=== PATIENT | male | born 1975 | race Caucasian/White ===

== ENCOUNTER 2022-07-20 15:00 | Emergency (ER) | payer MEDICAID ==
[~2022-07-20] VITALS: Ht 162.6 cm; Wt 81.6 kg
[~2022-07-20 15:00] MED LIST: ACYC400T19 PO; GABA800T11 PO
--- NOTE | 2022-07-20 15:30 | NUR ---
[facility] FOR ALCOHOL INTOXICATION. PT VITALS ARE WITHIN NORMAL LIMITS,NO RESP DISTRESS NOTED.
--- NOTE | 2022-07-20 17:50 | NUR ---
PT WANTED TO LEAVE, PT ABLE TO AMBULATE WITH STEAD GAIT, DR DOZIER AWARE.
[2022-07-20 17:51] VITALS: BP 122/72
== END 2022-07-20 17:52 | disposition home or self-care (01) ==
LOC: ER 15:04
DX: S00.83XA Contusion of other part of head, initial encounter (principal); F10.229 Alcohol dependence with intoxication, unspecified; F17.200 Nicotine dependence, unspecified, uncomplicated; Z88.8 Allergy status to other drugs, medicaments and biological substances; Z79.899 Other long term (current) drug therapy; W18.30XA Fall on same level, unspecified, initial encounter; Y93.89 Activity, other specified; Y92.89 Other specified places as the place of occurrence of the external cause; Y99.8 Other external cause status; Y90.9 Presence of alcohol in blood, level not specified
CPT/HCPCS: 70450-TC

== ENCOUNTER 2022-07-20 23:38 | Emergency (ER) | payer MEDICAID ==
[~2022-07-20] VITALS: Ht 162.6 cm; Wt 81.6 kg
[2022-07-20 23:50] VITALS: BP 135/88
== END 2022-07-21 05:25 | disposition home or self-care (01) ==
LOC: ER 23:39
DX: F10.129 Alcohol abuse with intoxication, unspecified (principal); F17.200 Nicotine dependence, unspecified, uncomplicated; Z88.8 Allergy status to other drugs, medicaments and biological substances; Z79.899 Other long term (current) drug therapy; Y90.9 Presence of alcohol in blood, level not specified

== ENCOUNTER 2025-07-01 01:36 | Inpatient (IN) | payer MEDICAID, OTHER ==
[~2025-07-01] VITALS: Ht 157.5 cm; Wt 79.4 kg
[2025-07-01] MEDS: IV NS 0.9% 1,000 ML BAG IV ONE (02:16)
[2025-07-01 02:21] LABS: PLATELET COUNT (AUTO) 131 K/uL (150-450); RED BLOOD CELL COUNT(AUTO) 5.07 MIL/uL (4.5-6.0); RED CELL DISTRIBUTION WIDTH 14.7 % (11.5-15.0); WHITE BLOOD COUNT (AUTO) 6.3 K/uL (4.3-11.0)
[2025-07-01] MEDS: ONDANSETRON HCL/PF 4 MG/2 ML VIAL IVP ONE (02:23)
[2025-07-01 02:32] LABS: CALCIUM, SERUM 9.1 mg/dL (8.5-10.1); CREATININE 1.2 mg/dL (0.6-1.3); INR 1.0 (0.91-1.10); SODIUM SERUM 142 mmol/L (136-145); UREA NITROGEN, BLOOD 15 mg/dL (7-18)
[2025-07-01 02:47] LABS: ASPARTATE AMINOTRANSFERASE 25 U/L (15-37); TOTAL PROTEIN, SERUM 7.7 g/dL (6.4-8.2)
[2025-07-01] MEDS ORDERED: MAG HYDROX/AL HYDROX/SIMETH 30 ML UDC PO PRN (03:30)
[2025-07-01] MEDS ORDERED: Z GUARD REMEDY 4 OZ OINT TP PRN (03:30)
[2025-07-01] MEDS ORDERED: ACETAMINOPHEN 325 MG TABLET PO PRN (03:30)
[2025-07-01] MEDS ORDERED: MAGNESIUM HYDROXIDE 30 ML UDC PO PRN (03:30)
[2025-07-01] MEDS: ONDANSETRON HCL/PF 4 MG/2 ML VIAL IVP PRN (03:31)
[2025-07-01 03:33] LABS: APPEARANCE,URINE CLEAR (CLEAR); BLOOD, URINE NEGATIVE Ery/uL (NEGATIVE); LEUKOCYTE ESTERASE ,URINE NEGATIVE (NEGATIVE); NITRITE, URINE NEGATIVE (NEGATIVE); UGLUCOSE NEGATIVE (NEGATIVE)
[2025-07-01 03:48] LABS: ADD URINE CULTURE NO; SQUAMOUS EPITHELIAL CELL,UR 0-2 /HPF (None Seen)
[2025-07-01] MEDS ORDERED: HYDROCODONE/APAP 10/325MG TABLET ONE (06:25)
[2025-07-01] MEDS: HYDROCODONE/APAP 10/325MG TABLET PO PRN (06:31)
[2025-07-01 08:00] VITALS: BP 112/84; TEMP 97.7; O2SAT 98
[2025-07-01] MEDS: PANTOPRAZOLE 40 MG VIAL IV SCH (08:53)
[2025-07-01] MEDS: IV NS 0.9% 1,000 ML IV PRN (12:09)
[2025-07-01] MEDS: HYDROMORPHONE 1 MG/1 ML DISP.SYRIN IV PRN (12:26)
[2025-07-01] MEDS ORDERED: DOSING PER PHARMACY-ZOSYN IV 1 EA EA XX PRN (13:30)
[2025-07-01] MEDS: ZOSYN IVPB 3.375 G in IV D5W 50ml IV SCH (14:36)
[2025-07-01 16:00] VITALS: BP 119/86; TEMP 97.7; O2SAT 99
[2025-07-01] MEDS: GABAPENTIN 400 MG CAPSULE PO SCH (16:39)
[2025-07-01] MEDS ORDERED: ACYCLOVIR PO SCH (17:00)
[2025-07-01 19:30] VITALS: BP 113/83; TEMP 97.5; O2SAT 95
== END 2025-07-01 20:00 | disposition left against medical advice (07) | DRG 254 ==
LOC: ER 01:41 → MED 06:26 → MEDSG1 07:51
PROVIDERS: ADMIT Student in an Organized Health Care Education/Training Program; ATTEND Student in an Organized Health Care Education/Training Program
DX: K37 Unspecified appendicitis (principal); K85.90 Acute pancreatitis without necrosis or infection, unspecified; D69.59 Other secondary thrombocytopenia; Z59.00 Homelessness unspecified; B19.20 Unspecified viral hepatitis C without hepatic coma; S00.11XA Contusion of right eyelid and periocular area, initial encounter; G62.9 Polyneuropathy, unspecified; Z79.899 Other long term (current) drug therapy; Z88.6 Allergy status to analgesic agent; M79.672 Pain in left foot; Y04.2XXA Assault by strike against or bumped into by another person, initial encounter; Y92.9 Unspecified place or not applicable; K70.30 Alcoholic cirrhosis of liver without ascites; F10.10 Alcohol abuse, uncomplicated; Y90.9 Presence of alcohol in blood, level not specified; F17.200 Nicotine dependence, unspecified, uncomplicated; E66.9 Obesity, unspecified; Z91.148 Patient's other noncompliance with medication regimen for other reason; Z53.29 Procedure and treatment not carried out because of patient's decision for other reasons; F19.10 Other psychoactive substance abuse, uncomplicated; Z86.19 Personal history of other infectious and parasitic diseases
CPT/HCPCS: 36415; 70486-TC; 71045-TC; 73630-TC; 76705-TC; 80048-TC; 80076-TC; 81001; 83690-TC; 84484-TC; 85025-TC; 85730-TC; G0378; J1171; J2405; J2470; J2543; J7030; J7060